=== PATIENT | male | born 1950 | race Caucasian/White ===

== ENCOUNTER 2017-03-26 06:17 | Day surgery (SDC) | payer BC ==
[2017-03-22 15:01] LABS: BASOPHILS 0 %; EOSINOPHILS 0.4 %; EOSINOPHILS ABSOLUTE 0.01 10/3/uL (0.0-0.53); HEMATOCRIT 39.4 % (40.0-51.0); HEMOGLOBIN 13.6 g/dL (13.6-17.8); LYMPHOCYTES ABSOLUTE 1.18 10/3/uL (0.67-4.30); MEAN CORPUS HGB CONC 34.5 g/dL (32.0-36.0); MEAN CORPUSCULAR HEMOGLOB 30.4 pg (26.0-34.0); MEAN CORPUSCULAR VOLUME 88.1 fL (80-100); MEAN PLATELET VOLUME 11.2 fL (9.2-13.0); MONOCYTES 13.2 %; MONOCYTES ABSOLUTE 0.37 10/3/uL (0.21-1.20); NEUTROPHILS 44.4 %; NEUTROPHILS ABSOLUTE 1.25 10/3/uL (2.02-8.40); PLATELET COUNT 139 10/3/uL (150-400); RBC DISTRIBUTION WIDTH 12.8 % (12.0-16.0); RED CELL COUNT 4.47 10/6/uL (4.7-6.1); WHITE BLOOD CELLS 2.8 10/3/uL (4.5-10.5)
[2017-03-22 15:03] LABS: MANUAL DIFF NO %
[2017-03-22 15:21] LABS: A/G RATIO 1.5 (0.7-1.9); ALBUMIN 4.3 G/DL (3.5-5.0); CALCIUM, SERUM 8.9 MG/DL (8.5-10.4); CHLORIDE, SERUM 107 MMOL/L (96-112); CO2 (CARBON DIOXIDE) 28 MMOL/L (24-34); CREATININE 1.05 MG/DL (0.70-1.30); GFR AFRICAN AMERICAN 85 ML/MIN (>=60); GFR NON AFRICAN AMERICAN 73 ML/MIN (>=60); GLOBULIN 2.9 G/DL (2.5-4.1); GLUCOSE, SERUM 86 MG/DL (60-99); POTASSIUM, SERUM 4.2 MMOL/L (3.5-5.3); SGOT(AST) 25 U/L (5-40); SGPT(ALT) 23 U/L (5-65); SODIUM, SERUM 141 MMOL/L (135-148); TOTAL PROTEIN 7.2 G/DL (6.0-8.5)
[2017-03-22 15:23] LABS: ALKALINE PHOSPHATASE 81 U/L (45-117); BUN (BLOOD UREA NITROGEN) 21 MG/DL (6-23); TOTAL BILIRUBIN 1.1 MG/DL (0-1.2)
--- NOTE | ~2017-03-26 | PREOPHP ---
PreOp History and Physical [id number] [facility] [place]. [address] NAME: CURTIS BANDA 3RD : 48 STATUS : PRE [facility] PAT#: [id number] AGE: 66 ADM/REG DATE : MR#: [id number] REPORT SERV DATE: 03/26/17 DICTATED BY: MICHELLE CARDONA III DATE: 03/07/17 REPORT STATUS : Draft TRANSCRIBED BY: MODHeather DATE: 03/07/17 HISTORY OF PRESENT ILLNESS: This is a 66-year-old male comes to the operating room for open right inguinal hernia repair. The patient has a right inguinal hernia, which has been present for one year. The hernia has been associated with local pain and discomfort. The patient has had no nausea, vomiting, or obstructive symptoms. He comes to the operating room now for open right inguinal hernia repair. PAST MEDICAL HISTORY: History of deep venous thrombosis. PAST SURGICAL HISTORY: Includes gastric bypass surgery, hip replacement, and IVC filter placement for DVT. MEDICATIONS: Vitamin B complex and Viagra. FAMILY HISTORY: Positive for heart disease and cancer. SOCIAL HISTORY: The patient has a history of tobacco abuse in the past. He has no history of alcohol use. ALLERGIES: SEPTRA. REVIEW OF SYSTEMS: The patient's 14-point review of systems is otherwise unremarkable. PHYSICAL EXAMINATION: GENERAL: This is a male in no acute distress. He is alert and oriented x3. VITAL SIGNS: Blood pressure 116/73, pulse 79, and temperature 97.7. HEENT: Unremarkable. Cranial nerves II through XII are normal. LUNGS: Clear. CARDIAC: Normal. ABDOMEN: Soft and nontender. In the right groin, there is a moderate-sized inguinal hernia. This is reducible. The left groin is normal. EXTREMITIES: Normal. ASSESSMENT: 1. A 66-year-old male with symptomatic right inguinal hernia. 2. History of deep venous thrombosis. PLAN: The patient comes to the operating room now for open right inguinal hernia repair. This procedure, the risks, benefits, and alternatives, including not limited to the risk for bleeding, infection, pain, swelling, scarring, deformity to the area, seroma formation, hematoma formation, recurrence of the hernia, nerve injury, chronic paresthesia, pain in the thigh, scrotum, or groin, chronic neuralgia or neuroma, and unforeseen complications including deep venous thrombosis, pulmonary embolus, myocardial infarction, stroke, pneumonia, and , have been explained to the patient prior to surgery. The expected PreOp History and Physical [address] [address] NAME: CURTIS BANDA 3RD : 48 STATUS : PRE [facility] PAT#: [id number] AGE: 66 ADM/REG DATE : MR#: [id number] REPORT SERV DATE: 03/26/17 DICTATED BY: MICHELLE CARDONA III DATE: 03/07/17 REPORT STATUS : Draft TRANSCRIBED BY: MIKE DATE: 03/07/17 length of recovery has been explained. The option of nonoperative management has been offered to the patient, but declined. The patient's questions have been answered. He understands the risks and agrees to surgery as planned. RHHerve/MIKE Michelle Cardona III, M.D. / [id number]
--- NOTE | ~2017-03-26 | OP ---
Record Of Operation [facility] [address] [place]. [address] NAME: CURTIS BANDA 3RD : 48 STATUS : [facility]#: [id number] AGE: 66 ADM/REG DATE : 03/26/17 MR#: [id number] REPORT SERV DATE: 03/26/17 DICTATED BY: MICHELLE MARTÍNEZ III DATE: 03/26/17 REPORT STATUS : Draft TRANSCRIBED BY: MODHeather DATE: 03/26/17 DATE OF PROCEDURE: 03/26/2017 PREOPERATIVE DIAGNOSIS: Symptomatic right inguinal hernia. POSTOPERATIVE DIAGNOSIS: Symptomatic right inguinal hernia, direct right inguinal hernia. PROCEDURE: Open Hermila tension-free repair of right inguinal hernia with Prolene mesh. ANESTHESIA: General with intubation. COMPLICATIONS: None. ESTIMATED BLOOD LOSS: Less than 5 mL. SPECIMENS: None. DRAINS: None. LAP AND SPONGE COUNT: Correct x3. BRIEF HISTORY: This 66-year-old male presented with a symptomatic right inguinal hernia. It was felt that open repair of this hernia is indicated. This procedure, the risks, benefits, and alternatives including, but not limited to the risk of bleeding; infection; pain; swelling; scar or deformity to the area; seroma formation; hematoma formation; recurrence of the hernia; nerve injury; chronic paresthesia or pain in the thigh, scrotum, or groin; chronic neuralgia or neuroma; and unforeseen complications including deep venous thrombosis, pulmonary embolus, myocardial infarction, stroke, pneumonia, and were fully explained to the patient prior to surgery. The expected length of recovery was explained. The patient's questions were answered, and he understood the risks and agreed to surgery as planned. DESCRIPTION OF PROCEDURE: After being appropriately identified and after discussing the risks of surgery with him again in the preoperative area and after identifying the hernia with him in the preoperative area, the patient was taken to the operating room and placed in the supine position on the operating room table. General anesthesia was administered, and he was intubated without difficulty. The abdomen and groins were prepped and draped sterilely in the usual fashion. After an appropriate "time-out" per JCAHO standards, a small oblique incision was made in the right groin from the pubic tubercle medially towards the anterior superior iliac spine laterally. The incision was continued through the subcutaneous tissue. Hemostasis was controlled with cautery. The external oblique fascia was identified. This fascia was opened along the direction of its fibers so as to open the external inguinal ring. Using sharp dissection, the underlying ilioinguinal and genitofemoral nerves were identified. These were carefully isolated and protected to one side. Using sharp dissection, the spermatic cord and its contents were mobilized from the floor of the canal, and a Magno drain was placed around it. There was a large direct Record Of Operation [address] [place]. [address] NAME: CURTIS BANDA 3RD : 48 STATUS : [facility] PAT#: [id number] AGE: 66 ADM/REG DATE : 03/26/17 MR#: [id number] REPORT SERV DATE: 03/26/17 DICTATED BY: MICHELLE MARTÍNEZ III DATE: 03/26/17 REPORT STATUS : Draft TRANSCRIBED BY: MIKE DATE: 03/26/17 hernia protruding through the floor, medial and slightly superior to the internal ring. Using sharp dissection, this hernia was dissected free from the surrounding tissues. It was reduced back into the abdominal cavity. The spermatic cord was skeletonized, and it was noted that there was no indirect component to the hernia. The hernia was reduced back into the floor. The fascial defect was closed with interrupted 2-0 silk sutures, which were placed between the shelving edge of the inguinal ligament laterally and the internal oblique and transversalis fascia medially. This resulted in good closure of the defect with minimal tension. The defect itself was only about 2 cm in size. A Prolene mesh was then selected and cut to the appropriate size for the floor of the canal. A slit was made in the mesh laterally to incorporate the spermatic cord. The mesh was then secured to the floor of canal with a running 2-0 Prolene suture, which was placed between the edge of the mesh and the shelving edge of the inguinal ligament laterally and the edge of the mesh and the internal oblique and transversalis fascia medially. The mesh was secured lateral to the cord as well. Upon completion of this, the mesh laid nicely on the floor of canal and was not twisted or kinked in anyway and was not under any tension. A small finger could be placed through the internal ring so that the spermatic vessels had not been unduly tightened or narrowed. Hemostasis was assured. The external oblique fascia was closed with a running 2-0 silk suture. The subcutaneous tissue was closed with a running 3- 0 chromic suture. The skin was closed with a running subcuticular 4-0 Monocryl stitch. The incision was injected with 0.5% Marcaine, dressings were applied, anesthesia was reversed, and the patient was taken to the recovery room in stable condition. He tolerated the procedure well. His family was informed of results of surgery. The patient will be discharged when stable and comfortable and able to void and ambulate. His family was advised that he should keep his wound clean and dry for [address] hours[address] He should not drive for three to four days after surgery or while using narcotics, that he should resume his usual medications, and that he should not perform any heavy lifting for five to six weeks. He has been asked to return in two weeks for followup or sooner if any fever, chills, wound drainage, or other problems prior to that time. He was given a prescription for Percocet 7.5 one t.i.d., #12 as needed for pain, which he was advised not to use while driving. RHJ/MODL Michelle Martínez III, M.D. / [id number] CC: Sung Burgess III, M.D.
[~2017-03-26 06:17] MED LIST: ACET500CAP PO; C5 PO; FISH-EPA1000 MG PO; HAIR PO; MOBIC7.5 PO; MULTIPLE VIT PO; PCET PO; VITAMIN B-121000 MC1 SL; VITAMIN B12 PO; VITAMIN C PO; VITAMIN D31000 UNIT PO; VITC500 PO; [UNRECOGNIZED DRUG - OTHER] PO; [UNRECOGNIZED DRUG - OTHER] PO; [UNRECOGNIZED DRUG - REMARK] PO
== END 2017-03-26 14:30 | disposition home or self-care (01) ==
LOC: SDC 06:17
PROVIDERS: Surgery
PROC: 0YU50JZ Supplement Right Inguinal Region with Synthetic Substitute, Open Approach (ICD-10-PCS; principal; 2017-03-26 08:00)
DX: K40.90 Unilateral inguinal hernia, without obstruction or gangrene, not specified as recurrent (principal); Z79.899 Other long term (current) drug therapy; I82.409 Acute embolism and thrombosis of unspecified deep veins of unspecified lower extremity; Z88.2 Allergy status to sulfonamides; Z88.8 Allergy status to other drugs, medicaments and biological substances
CPT/HCPCS: 71020; 80053; 85025; 93005; A9270-GY; C1781; J0690; J1170; J2250; J2405; J2710; J3010